=== PATIENT | male | born 1980 | race Caucasian/White ===

== ENCOUNTER → 2022-04-29 | Outpatient (CLI) | payer OTHER, SELFPAY ==
--- NOTE | 2022-04-29 18:40 | CT_ITS ---
EXAM: CT MAXILLOFACIAL SINUSES WITH INTRAVENOUS CONTRAST CLINICAL INDICATION: NASAL MASS TECHNIQUE: Helically acquired images were obtained of the maxillofacial sinuses with intravenous contrast. This CT exam was performed using one or more of the following dose reduction techniques: automated exposure control, adjustment of the mA and/or kV according to patient size, and/or use of iterative reconstruction technique. This report was created using [employer] report [employer] technology. CONTRAST: IV 50mL Isovue-370 COMPARISON: None. FINDINGS: MAXILLARY SINUSES: Clear. Ostiomeatal complexes are normally formed. SPHENOID SINUSES: Clear. FRONTAL SINUSES: Clear. ETHMOID AIR CELLS: Clear. NASAL CAVITY/SEPTUM: Nasal septum is midline. Nasal turbinates are unremarkable. No demonstrated mass. BONES/JOINTS: No fracture. ORBITS: Visualized globes, extraocular muscles, and retrobulbar fat are unremarkable. DENTAL: Unremarkable as visualized. No periodontal osseous erosion. CT/Sinus/Facial Bone WITH Contras IMPRESSION: Negative CT of the sinuses. No evidence of mass. Electronically Signed: Bárbara Rolle MD at 23:09 EST Reading Location ID and State: [id number] / Tel , Service support ,
== END | disposition home or self-care (01) ==
LOC: CT 18:32
PROVIDERS: Visit Provider Otolaryngology
DX: R22.0 Localized swelling, mass and lump, head (principal)
CPT/HCPCS: 70487; Q9967

== ENCOUNTER 2022-07-14 06:32 | Day surgery (SDC) | payer OTHER, SELFPAY ==
[2022-07-14 06:59] VITALS: BP 137/74; PULSE 84; RESP 18; TEMP 37.1; O2SAT 100; BMI 34.5
[2022-07-14] MEDS: Lactated Ringers 1,000 ML 15 ML IV (07:10)
--- NOTE | 2022-07-14 08:10 | DCINST_ITS ---
Discharge Instructions Diet Discharge Diet: No restrictions Activity Discharge Activity: Return to Normal Activity Dressing / Incision Call your doctor if your incision/area has: Increased Pain/ Swelling Additional Dressing/Incision Instructions:: mupirocin to incision twice daily for 3 weeks Follow Up Care Please Follow Up With: Regan Cavanaugh MD When: 6 days Test Results: Test results from this visit will be discussed in further detail at your follow- up appointment, if applicable. Discharge Plan Admission Attending Provider: Regan Cavanaugh Primary Care Provider: Care Physician,Linda Primary Discharge Orders/Prescriptions Prescriptions: No Action NK Referrals / Follow Up: Care Physician,No Primary [Primary Care Provider] - Disposition Disposition (needs filled in before D/C Order can be placed): Home, Self Care
--- NOTE | 2022-07-14 08:12 | PCM.OPRPT ---
Problems Associated Problem List Diagnoses (1) Mass of nose: Report of Operation Date of Procedure: 07/14/22 Pre-Operative Diagnosis: right nasal mass Post-Operative Diagnosis: right nasal mass Surgery/Procedure Performed:: excision right nasal mass Surgeon: Regan Cavanaugh Type of Anesthesia: General Description of Procedure: on the day of the procedure, after appropriate informed consent was obtained, the patient was brought to the operating room and placed in supine position on the operating table. he was placed under general anesthesia by the anesthesiologist. the face was prepped and draped in sterile fashion. the right nasal dorsum mass overlying skin was injected with lidocaine/epinephrine. a 1cm incision was made at the junction of the right nasal dorsum and lateral nasal sidewall. the mass was circumferentially dissected with the metzenbaum scissor. hemostasis was achieved with the bipolar. the incision was closed with 4-0 vicryl and 5-0 nylon. he was awoken from anesthesia and transferred to the PACU in stable condition.
--- NOTE | 2022-07-14 08:15 | LES_PTH ---
PATIENT: NELSON VEGAS LOC: [facility] [place] U#:[id number] AGE/SX: 42/M ROOM: RE07/14/[address]: Dr. Regan Cavanaugh MD : [id number] BED: DIS: 07/14/2022 SPEC #: [id number] RECD: 07/14/22 13:16 STATUS: CAM DEANDRE #: [id number] MAO: 07/14/22 08:[address]: Regan Cavanaugh DEPT: SURGICAL PATHOLOGY RECD BY: Josie Kelley ENTERED: 07/14/22 13:47 SP TYPE: Lesion OTHR DR: No Primary Care Phys Tissues: Skin of nose, NOS Procedures: Surgery Specimen Level IV HEADER OPERATION: Excision nose lesion PRE-OP DIAGNOSIS: Right nasal mass TISSUE SUBMITTED: Right nasal mass MICROSCOPIC DIAGNOSIS Right nasal mass, excision: Capillary hemangioma/pyogenic granuloma. AM:yesica 07/15/2022 MICROSCOPIC DESCRIPTION Slides are reviewed. GROSS DESCRIPTION Received in fixative is one container labeled with the patient's name and designated right nasal mass. The specimen consists of a piece of deng-pink nodule measuring 1.0 x 1.0 x 0.5 cm. The specimen is bisected and submitted entirely in one cassette. / SJ:rg 07/14/2022 TC:1 CPT: 01402
[2022-07-14] MEDS: Lidocaine 1% /Epi 1:100 (50ml) 50 ML VIAL (08:25)
[2022-07-14] MEDS: Mupirocin Ointment 22gm Tube 1 APPLIC (08:32)
[2022-07-14 08:55] VITALS: BP 134/83; BP 137/74; PULSE 88; RESP 18; TEMP 36.3; O2SAT 98
[2022-07-14 09:00] VITALS: BP 124/87; BP 137/74; PULSE 88; RESP 18; O2SAT 98
[2022-07-14 09:13] VITALS: BP 136/97; BP 137/74; PULSE 77; RESP 18; TEMP 36.4; O2SAT 100
[2022-07-14 10:04] VITALS: BP 137/74; BP 151/88; PULSE 70; RESP 16; TEMP 36.3; O2SAT 99
== END 2022-07-14 10:28 | disposition home or self-care (01) ==
LOC: SDC 06:32 → AC 06:33
PROVIDERS: Referring Provider Otolaryngology; Visit Provider Otolaryngology
PROC: (CPT 11440; principal; 2022-07-14 08:05)
DX: L98.0 Pyogenic granuloma (principal)
CPT/HCPCS: 11440; 00300; 88305; J7120; J2405

== ENCOUNTER → 2022-07-24 | Outpatient (CLI) | payer OTHER, SELFPAY ==
--- NOTE | 2022-07-24 08:59 | RAD_ITS ---
STUDY: X-RAY - ESOPHAGUS (BARIUM SWALLOW) WITH FLUOROSCOPY REASON FOR EXAM: Male, 42 years old. DYSPHAGIA TECHNIQUE: 15 view(s) of the esophagus were obtained following swallowing of barium. FLUOROSCOPY TIME (if supplied): (31 seconds) minutes/seconds. 25.84 mGy COMPARISON: None. FINDINGS: There is no demonstrated esophageal foreign body. There is no demonstrated stricture or mucosal abnormality. Normal gastroesophageal junction, without a demonstrated hiatal hernia. The patient ingested a 12 mm tablet of barium without any difficulty. Normal visualized aortic arch and descending thoracic aorta. Normal visualized pulmonary parenchyma. Normal visualized osseous structures of the thorax. RAD/Esophagus Dual Contrast IMPRESSION: Normal plain film x-ray examination (barium swallow) of the esophagus. Electronically Signed: Everett Perez MD at 9:47 EDT ,
== END | disposition home or self-care (01) ==
LOC: RAD 08:56
PROVIDERS: Referring Provider Otolaryngology; Visit Provider Otolaryngology
DX: R13.10 Dysphagia, unspecified (principal)
CPT/HCPCS: 74221